=== PATIENT | female | born 1970 | race African-American/Black ===

== ENCOUNTER → 2023-05-29 | Outpatient (CLI) | payer OTHER, SELFPAY ==
--- NOTE | 2023-05-29 09:15 | NM_ITS ---
INDICATION: Grave''s disease -- 15 mci BRAGG please EXAMINATION: NUCLEAR MEDICINE THYROID THERAPY - NM Radiopharmaceutical Therapy, by oral administration TECHNIQUE: After obtaining informed consent, the patient was orally administered a 16.1 mCi I-131 tablet. COMPARISON: No relevant prior comparison study available NM/Therapy I-131 IMPRESSION: Radioactive iodine therapy. Electronically Signed: Bakari Sellers MD at 10:04 EST ,
--- OUTSIDE RECORDS SUMMARY | 2023-05-29 09:42 | XMS RPT_ITS | CCD ---
Author Name Unknown Address [id number] [place] [address] Organization [facility] Care Team Providers Care Employment Appeals Examiner Name Role Phone Daphne Le Primary Care Provider [phone] Daphne Le Referring Unavailable Margarito Lowry Attending Unavailable [facility] Unavailable Le, Garimah Referring Unavailable [facility], [facility] Primary Care Unavailable Margarito Lowry Attending Unavailable Rey, Silverioimah Referring Unavailable [facility] Primary Care Unavailable Margarito Lowry Attending Unavailable Rey, Garimah Referring Unavailable Germania Schulz Attending Unavailabl e Le, [facility] Primary Care Unavailable Le, Garimah Referring Unavailable [facility], [facility] Primary Care Unavailable Margraito Lowry Attending Unavailable Salima Santiago Attending Unavailable Le, [facility] Primary Care Unavailable Le, Garimah Referring Unavailable Le, Garimah Primary Care Unavailable Rey, Larisah Attending Unavailable Le, Garimah Referring Unavailable [facility], [facility] Primary Care Unavailable Rey, Garimah Referring Unavailable AlenMargarito Attending Unavailable Le, Garimah Primary Care Unavailable Le, Garimah Referring Unavailable [facility] Attending Unavailable Le, Garimah Primary Care Unavailable Le, Garimah Referring Unavailable AlenMargarito Attending Unavailable Le, Garimah Primary Care Unavailable Rey, Garimah Referring Unavailable Margarito Lowry Attending Unavailable Rey, [facility] Primary Care Unavailable Rey, Daphne Attending Unavailable Rey, Garimah Referring Unavailable Le, Garimah Referring Unavailable Rico Finch Attending Unavailable Rey, Garimah Primary Care Unavailable Rey, Garimah Referring Unavailable Rico Finch Attending Unavailable [facility] Care Unavailable Daphne Le MD Primary Care Provider Daphne Le MD Primary Care Provider Unavailable Primary Care Provider Unavailabl e PROVIDER, UNKNOWN Admitting Unavailable MALLY AGARWAL Referring Unava ilable PROVIDER, UNKNOWN Attending Unavailable CLEMOMALLY Mccabe Referring Unava ilable PROVIDER, UNKNOWN Attending Unavailable PROVIDER, UNKNOWN Admitting Unavailable CLEMOMALLY Mccabe Referring Unava ilable PROVIDER, UNKNOWN Attending Unavailable PROVIDER, UNKNOWN Admitting Unavailable DAPHNE LE Primary Care Unavailable MARGARITO LOWRY Attending Unavailable [facility] Care Unavailable ALENMARGARITO Attending Unavailable LEFORMERLY [facility] Primary Care Unavailable ALEN, MARGARITO Attending Unavailable ALEN, MARGARITO Referring Unavailable REY [facility] Care Unavailable GERMANIA SCHULZ Attending Unavailabl e GERMANIA SCHULZ Referring Unavailabl e REY [facility] Care Unavailable Allergies Allergy Classification Reported Allergen(s) Allergy Type Date of Onset Reaction(s) Facility Sulfamethoxazole / Trimethoprim (1 source) Sulfamethoxazole / Trimethoprim Drug Allergy 02-08-20 16 Itching, Other (See Comments) [facility] (20 sources) Sulfamethoxazole / Trimethoprim; Translations: [SULFAMETHOXAZOLE-T RIMETHOPRIM] Drug Allergy 05-15-19 15 Itching, Swelling, Other (See Comments), Hives, Other [place] (10 sources) traZODone Drug Allergy 07-05-19 [facility] Work Phone: (10 sources) Amlodipine Besy-Benazepril Hcl Propensity to adverse reactions to drug 07-05-19 [facility] Medications Current Medications Medication Drug Class(es) Dates Sig (Normalized) Sig (Original) albuterol 0.83 mg/ml inhalant solution (19 sources) beta2-Adrenergic Agonist Start: 01-31-2020 albuterol (PROVENTIL) nebulizer solution 2.5 mg Problems Active Problems Problem Classification Problem Date Documented Date Episodic/Chronic Asthma (1 source) Uncomplicated moderate persistent asthma; Translations: [Moderate persistent asthma without complication] Chronic Diabetes mellitus without complication (2 sources) Type 2 diabetes mellitus without complications; Translations: [Type 2 diabetes mellitus without complications (HCC)] Onset: 03-01-2023 Chronic Esophageal disorders (20 sources) Gastroesophageal reflux disease without esophagitis; Translations: [Gastro-esophageal reflux disease without esophagitis] Onset: 03-21-2017 03-21-2017 Chronic Essential hypertension (2 sources) Essential (primary) hypertension; Translations: [Essential (primary) hypertension] Onset: 09-09-2021 Chronic Multiple sclerosis (20 sources) Multiple sclerosis; Translations: [Multiple sclerosis] Onset: 05-03-2017 05-03-2017 Chronic Other aftercare (2 sources) Other chcf (current) drug therapy; Translations: [Other terminologist (current) drug therapy] Onset: 03-01-2023 Episodic Other nutritional; endocrine; and metabolic disorders (2 sources) Morbid obesity; Translations: [Obesity, Class III, BMI 40-49.9 (morbid obesity)] Onset: 01-03-2018 01-03-2018 Chronic Other screening for suspected conditions (not mental disorders or infectious disease) (9 sources) Patient encounter status; Translations: [Encounter for screening for malignant neoplasm of colon] Onset: 09-09-2021 Resolved: 10-09-2021 09-09-2021 Episodic Spondylosis; intervertebral disc disorders; other back problems (1 source) Pain in thoracic spine; Translations: [Right-sided thoracic back pain, unspecified chronicity] Onset: 05-11-2023 Episodic Thyroid disorders (17 sources) Graves' disease; Translations: [Thyrotoxicosis with diffuse goiter without thyrotoxic crisis or storm] Onset: 03-17-2021 Chronic Unclassified (1 source) OUTSIDE CORRESPONDENCE 02-07-2023 Past or Other Problems Problem Classification Problem Date Documented Date Episodic/Chronic Diabetes mellitus without complication (2 sources) Prediabetes; Translations: [Prediabetes] Onset: 2 Episodic Esophageal disorders (9 sources) Esophageal dysmotility; Translations: [Esophageal motility disorder] Onset: 7 03-21-2017 Episodic Malaise and fatigue (2 sources) Other fatigue; Translations: [Other fatigue] Onset: 2 Episodic Other disorders of stomach and duodenum (20 sources) Nonulcer dyspepsia; Translations: [Other diseases of stomach and duodenum] Onset: 7 05-03-2017 Episodic Other eye disorders (6 sources) Thyroid eye disease; Translations: [Other specified disorders of eye and adnexa] Onset: 1 03-17-2021 Episodic Other gastrointestinal disorders (20 sources) Dysphagia; Translations: [Dysphagia, pharyngoesophageal phase] Onset: 7 03-21-2017 Episodic Other nutritional; endocrine; and metabolic disorders (2 sources) Abnormal weight loss; Translations: [Abnormal weight loss] Onset: 1 Episodic Screening and history of mental health and substance abuse codes (2 sources) Personal history of nicotine dependence; Translations: [Personal history of nicotine dependence] Onset: 2 Episodic Results Test Name Value Interpretation Reference Range Facil ity Vital Signs Date Time Vital Sign Value Performing Clinician Faci lity 09-09-2021 10:24-0400 Diastolic blood pressure 93 mm[Hg] Rico Finch MD Work Phone: [facility] 09-09-2021 10:24-0400 Heart rate 95 /min Rico Finch MD Work Phone: [facility] 09-09-2021 10:24-0400 Respiratory rate 16 /min Rico Finch MD Work Phone: [facility] 09-09-2021 10:24-0400 SaO2% (BldA) [Mass fraction] 100 % Rico Finch MD Work Phone: [facility] 09-09-2021 10:24-0400 Systolic blood pressure 156 mm[Hg] Rico Finch MD Work Phone: [facility] 09-09-2021 08:27-0400 Body height 157.5 cm Rico Finch MD Work Phone: [facility] 09-09-2021 08:27-0400 Body mass index (BMI) [Ratio] 31.09 kg/m2 Rico Finch MD Work Phone: [facility] 09-09-2021 08:27-0400 Body temperature 97.9 [degF] Rico Finch MD Work Phone: [facility] 09-09-2021 08:27-0400 Body weight 77.11 kg Rico Finch MD Work Phone: [facility] Encounters Encounter Date Encounter Type Care Provider Facility Start: 05-11-2023 End: 05-11-2023 Emergency department patient visit DAPHNE LE Facility:[facility] Start: 03-01-2023 End: 03-02-2023 ambulatory [facility] Start: 02-09-2023 Orders Only Idania Valles nd RN Work Phone: [id number] Start: 02-07-2023 End: 02-08-2023 ambulatory UNKNOWN PROVIDER Facility:[facility] Start: 02-07-2023 End: 02-07-2023 [facility] Radiology Procedures Date Procedure Procedure Detail Performing Clinician Start: 02-07-2023 End: 02-07-2023 MG IMPORTED IMAGES Mally wynn DO Work Phone: Start: 09-19-2022 Assay of free thyroxine Margarito Lowry MD Work Phone: Start: 07-26-2022 Assay of free thyroxine Margarito Lowry MD Work Phone: Start: 05-04-2022 Mammography [facility]st ation Start: 02-26-2022 End: 02-26-2022 Comprehensive metabolic panel Germania Schulz MD Work Phone: Start: 02-05-2022 Assay of free thyroxine Margarito Lowry MD Work Phone: Start: 11-06-2021 End: 11-06-2021 Assay of free thyroxine Margarito Lowry MD Work Phone: Start: 09-09-2021 End: 09-09-2021 Colonoscopy Physician Generic Start: 09-09-2021 Gluc bld gluc mntr d ev cleared fda spec home use Rico Finch MD Work Phone: Start: 07-14-2021 Assay of free thyroxine Margarito Lowry MD Work Phone: Start: 04-17-2021 Comprehensive metabo lic panel Daphne Le MD Work Phone: Start: 03-20-2021 Assay of free thyroxine Salima Sierra MD Work Phone: Start: 03-20-2021 Hepatic function panel Salima Sierra MD Work Phone: Start: 11-04-2020 Blood count complete auto&auto difrntl wbc Germania Schulz MD Work Phone: Start: 04-06-2020 Blood count complete auto&auto difrntl wbc Eric Montoya Work Phone: Start: 02-10-2020 Us lmtd joint/oth no nvasc xtr strux r-t w/img Daphne Le Work Phone: Start: 02-05-2020 Screening digital br east tomosynthesis bi Daphne Le Work Phone: Start: 01-31-2020 Brncdilat rspse spmt ry pre&post-brncdilat admn Daphne Le Work Phone: Start: 01-31-2020 Nebulizer therapy Ashley Le Work Phone: Start: 11-19-2019 Radiologic exam ches t 2 views Daphne Le Work Phone: Start: 11-12-2019 Hepatic function panel Briana Gupta Work Phone: Start: 09-26-2019 EEG REPORT Collins Karla chavarriad Devika Work Phone: Start: 01-30-2019 Us breast uni real t delia with image limited Daphne Le Work Phone: Start: 01-30-2019 Diagnostic mammograp hy computer-aided detcj bi Daphne Le Work Phone: Start: 07-03-2017 Mammography Conversion Ap Start: 02-28-2000 CONVERTED SURGICAL PATHOLOGY Conversion Beaker Ap Start: 07-21-1999 CONVERTED CYTOLOGY CANDLE MAKING SUPERVISOR Conversion Beaker Ap Plan of Treatment Date Care Activity Detail Author Start: 09-10-2031 Screening for malignant neoplasm of colon [facility] Start: 12-29-2025 Lipid panel Lipids [facility] Start: 02-08-2024 Screening for malignant neoplasm of breast Mammography [facility] Start: 05-04-2023 Screening for malignant neoplasm of breast [facility] Start: 02-09-2023 End: 02-10-2024 DBT Breast - right diagnostic MG MAMMO DIAG RIGHT ZANDER W/CAD Imaging Routine Abnormal finding on breast imaging Expected: 02/09/2023, Expires: 02/10/2024 [employer] Work Phone: Immunizations Immunization Date Immunization Notes Care Provider Libertad rausch 05-20-2021 Pfizer SARS-CoV-[address] [facility] 09-12-2020 Pfizer SARS-CoV-[address] car[facility] 08-22-2020 Pfizer SARS-CoV-2 Vaccination [facility] Dr carr [facility] Payers Date Payer Category Payer Unknown 2016 Unknown [employer] [address] xxxxxxxxxxxx 2016-Present [phone] [address] [place] [address] xxxxxxxxxxxx [id number] 2014 Unknown [id number] .[id number] 2014 Unknown [id number] [id number] .[id number] 1971 Unknown [id number] 2.16.840.1.158260.3.579.2.8 1971 Unknown [id number] 2.16.840.1.575379.3.579.2. 1971 Unknown [id number] 2.16840.1.569685.3.579.2.8 1971 Unknown [id number] 2.16840.1.129967.3.579.2.8 1971 Unknown [id number] 2.16.840.1.020864.3.579.2.8 1971 Unknown [id number] 2.16.840.1.241195.3.579.2. 1971 Unknown [id number] 2.16.840.1.737625.3.579.2. 1971 Unknown [id number] 2.16.840.1.909711.3.579.2. 1971 Unknown [id number] 2.16.840.1.783527.3.579.2. 1971 Unknown [id number] 2.16840.1.627250.3.579.2. 1971 Unknown [id number] 2.16840.1.864586.3.579.2. 1971 Unknown [id number] 2.16840.1.088281.3.579.2. 1971 Unknown [id number] 2.16840.1.663466.3.579.2. 1971 Unknown [id number] 2.16840.1.048126.3.579.2. 1971 Unknown [id number] 2.16840.1.362116.3.579.2.732 1971 Unknown [id number] 2.840.1.886484.3.579.2.732 1971 Unknown [id number] [id number] Social History Date Type Detail Facility Start: 06-08-2018 End: 05-04-2022 Tobacco smoking status IAIS Former smoker [facility] End: 05-15-1995 History of tobacco use Current smoker [place] Start: 06-08-2018 End: 05-04-2022 Alcohol intake Current drinker of alcohol (finding) [place] Start: 05-03-2017 Tobacco Comment only smoked for a few years [place] Start: 05-03-2017 Alcohol Comment 2-3 drinks a [facility] Start: 1970 [facility] Start: 06-08-2018 End: 05-04-2022 Tobacco use and exposure [facility] Start: 06-08-2018 End: 05-04-2022 Alcohol intake Yes [facility] End: 05-15-1995 History of tobacco use Cigarette Smoker [facility] Start: 05-03-2017 Tobacco Comment only smoked for a few years [facility] Work Phone: Start: 05-03-2017 Alcohol Comment 2-3 drinks a week [facility] Work Phone: Start: 08-30-2021 End: 09-19-2022 Exposure to SARS-CoV-2 (event) Not sure [facility] Start: 1970 Sex Assigned At Female [facility] Start: 05-04-2022 History of Social function [facility] Start: 03-03-2022 Gender identity Identifies as female gender (finding) [facility] Start: 04-08-2022 Sexual orientation Heterosexual (finding) [facility] Tobacco smoking stat [facility] Tobacco smoking consumption unknown [facility] History of Present illness Narrative 02-09-2023 Idania Florian RN - 02/09/2023 9:17 AM EDT Note Date & Type Note Facility 02-09-2023 History of Presen t illness Narrative Breast imaging reviewed by radiologist. Impression/Recommendation: MAMMOGRAM FINDINGS: There are scattered areas of fibroglandular densities. There are calcifications in the upper outer quadrant of the right breast at middle depth. No suspicious masses, calcifications or other abnormalities are seen in the left breast. IMPRESSION: Calcifications in the right breast require additional evaluation. Diagnostic mammogram ([id number]) of the right breast including spot magnification views are recommended. There is no evidence of malignancy in the left breast. BI-RADS Category 0: Incomplete, Needs Additional Imaging Evaluation Orders placed per radiologist recommendations. Patient will be contacted to schedule appropriate appointments. Idania Florian RN Breast Golf Club Weighter/Navigator [phone] documented in this encounter [facility] Evaluation note Note Date & Type Note Facility documented in this encounter [employer] Work Phone: Evaluation note Note Date & Type Note Facility documented in this encounter [facility] Evaluation note Note Date & Type Note Facility documented in this encounter [facility] Evaluation note Note Date & Type Note Facility documented in this encounter [facility] Evaluation note Note Date & Type Note Facility documented in this encounter [facility] Evaluation note Note Date & Type Note Facility documented in this encounter [facility] Evaluation note Note Date & Type Note Facility documented in this encounter [facility] Hospital Discharge instructions Instructions Note Date & Type Note Facility Hospital Discharge instructions Luz Elena Gautam RN - 09/09/2021 Colonoscopy: What to expect at home ACTIVITY: DO NOT DRIVE, OPERATE MACHINERY, OR DRINK ANY ALCOHOL TODAY. Avoid making critical decisions, signing legal documents, or performing any activity that requires alertness for the rest of the day. You may be bloated or have gas pains since air was introduced into the colon for the procedure. You may need to pass the gas throughout the day. You may experience a small amount of rectal bleeding; this can be normal after your colonoscopy. Notify your physician if the bleeding is enough to saturate your clothes. Rest the remainder of the day. You may resume normal activity tomorrow. You may return to work tomorrow. DIET: You may resume a normal diet unless notified or recommended by your physician. You may be eager to eat a large meal after fasting, but it is a good idea to start with light meals and ease into solid foods the first day. (*) If your stomach is upset, try clear liquids and bland, low-fat foods like plain toast or rice. Drink plenty of fluids for the first 24 hours (unless your physician states otherwise). MEDICATION: Resume your normal home medications unless notified or recommended by your physician. If you take blood thinners (such as Coumadin, Eliquis, Plavix, Aspirin, etc.) or anti-inflammatory medications (Advil, Motrin, Aleve, etc.), ask your physician when you may resume these medications. FOLLOW-UP APPOINTMENT: Follow up with or call your physician as needed. When to call for help: Call your doctor IMMEDIATELY or seek medical care if you experience: Severe pain or vomiting A large amount (filling the toilet) of maroon, bloody stools or tar-like stools Your belly is swollen and firm with severe pain A fever greater than 101 degrees Redness or swelling of arm from the IV site for more than 48 hours Sudden onset of chest pain or shortness of breath If you become extremely dizzy or pass out (lose consciousness) IF YOU ARE UNABLE TO REACH YOUR PHYSICIAN GO TO NEAREST EMERGENCY DEPARTMENT documented in this encounter [facility] Work Phone: Summary Purpose Family History No Family History Records FoundNo Family History Records FoundNo Family History Records FoundNo Family History Records FoundNo Family History Records FoundNo Family History Records Found Advance Directives No Advanced Directives Records FoundDocuments on File Type Date Recorded Patient Clinical Data Associate Expl anation Advance Directives and Living Will Power of Elementary Classroom Teacher Latest Code Status on File Code Status Date Activated Date Inactivated Comments Full Code 05/03/2017 8:10 AM 05/03/2017 12:37 PM Documents on File Type Date Recorded Patient Clinical Data Associate Expl anation ACP-Advance Directive ACP-Power of Elementary Classroom Teacher Documents on File Type Date Recorded Patient Clinical Data Associate Expl anation Advance Directive(s) 07/07/2019 1:40 PM Latest Code Status on File Code Status Date Activated Date Inactivated Comments Full Code 09/09/2021 8:15 AM Full Code 05/03/2017 8:10 AM 05/03/2017 12:37 PM Latest Code Status on File Code Status Date Activated Date Inactivated Comments Full Code 09/09/2021 8:15 AM 09/09/2021 1:31 PM Assessments Diagnosis Moderate persistent asthma without complication Unspecified asthma Reason for Referral Specialty Diagnoses / Procedures Referred By Nisha t Referred To Contact Radiology Diagnoses OUTSIDE CORRESPONDENCE Procedures MG IMPORTED IMAGES Mally Agarwal DO [address] [place] [address] [address] [id number] Referral ID Status Reason Start Date Expiration Date Visits Re quested Visits Authorized [id number] Closed 02/07/2023 02/07/2024 1 1 Referral ID Status Reason Start Date Expiration Date Visits Re quested Visits Authorized [id number] Closed 02/07/2023 02/07/2024 1 1 Specialty Diagnoses / Procedures Referred By Contsuly t Referred To Contact Radiology Diagnoses Abnormal finding on breast imaging Procedures MG MAMMO DIAG RIGHT ZANDER W/Daphne Nick MD [address] [place] [address] [facility] MAMMOGRAPHY [address] [address] Referral ID Status Reason Start Date Expiration Date V isits Requested Visits Authorized [id number] Authorized 02/09/2023 02/09/2024 1 1 Additional Source Comments INFORMATION SOURCE (unrecogn ized section and content) DATE CREATED AUTHOR AUTHOR'S ORGANIZ ATION 11/06/2021 [facility] DATE CREATED AUTHOR AUTHOR'S ORGANIZ ATION 03/06/2022 [facility] DATE CREATED AUTHOR AUTHOR'S ORGANIZ ATION [facility] DATE CREATED AUTHOR AUTHOR'S ORGANIZ ATION 05/13/2023 [facility] DATE CREATED AUTHOR AUTHOR'S ORGANIZ ATION 05/28/2023 [facility] Source Comments (unrecognize d section and content) In the event this informatio n is protected by the Federal Confidentiality of Alcohol and Drug Abuse Patient Records regulations: The Federal rules restrict any use of the information to criminally investigate or prosecute any alcohol or drug abuse patient.[facility] the event this information is protected by the Federal Confidentiality of Alcohol and Drug Abuse Patient Records regulations: The Federal rules restrict any use of the information to criminally investigate or prosecute any alcohol or drug abuse patient.[facility] Care Teams (unrecognized sec tion and content) Employment Appeals Examiner Relationship Specialty Start Date End Date Daphne Le MD PCP - General 02/04/15 Employment Appeals Examiner Relationship Specialty Start Date End Date Daphne Le MD PCP - General 02/04/15 Employment Appeals Examiner Relationship Specialty Start Date End Date Daphne Le MD PCP - General 02/04/15 Employment Appeals Examiner Relationship Specialty Start Date End Date Daphne Le MD PCP - General 02/04/15 Employment Appeals Examiner Relationship Specialty Start Date End Date Daphne Le MD PCP - General 02/04/15 Employment Appeals Examiner Relationship Specialty Start Date End Date Daphne Le MD PCP - General 02/04/15 Employment Appeals Examiner Relationship Specialty [place] [address] [place] [phone] PCP - General 02/04/15 Employment Appeals Examiner Relationship Specialty [place] [address] [place] [phone] PCP - General 02/04/15 Employment Appeals Examiner Relationship Specialty Start Date End Date Daphne Le MD [address] [phone] PCP - General 02/04/15 Employment Appeals Examiner Relationship Specialty Start Date End Date Daphne Le MD [address] [phone] PCP - General 02/04/15 Reason for Visit (unrecogniz ed section and content) Referral ID Status Reason Start Date Expiration Date Visits Re quested Visits Authorized [id number] Closed 02/07/2023 02/07/2024 1 1 FOR RECORDS PERTAINING TO PATIENTS WHO ARE OR HAVE BEEN ENROLLED IN A CHEMICAL DEPENDENCY/SUBSTANCEABUSE PROGRAM, SOME INFORMATION MAY BE OMITTED. This clinical summary was aggregated from multiple sources. Caution should be exercised in using it in the provision of clinical care. This summary normalizes information from multiple sources, and as a consequence, information in this document may materially change the coding, format and clinical context of patient data. In addition, data may be omitted in some cases. CLINICAL DECISIONS SHOULD BE BASED ON THE PRIMARY CLINICAL RECORDS. [facility]. provides no warranty or guarantee of the accuracy or completeness of information in this document.
== END | disposition home or self-care (01) ==
LOC: NM 09:14
PROVIDERS: PCP Internal Medicine; Referring Provider Internal Medicine Endocrinology, Diabetes & Metabolism; Visit Provider Internal Medicine Endocrinology, Diabetes & Metabolism
DX: E05.90 Thyrotoxicosis, unspecified without thyrotoxic crisis or storm (principal)
CPT/HCPCS: 79005; A9517